=== PATIENT | female | born 1970 | race Caucasian/White ===

== ENCOUNTER 2017-12-08 19:10 | Observation (INO) | payer BC, MEDICAID ==
[~2017-12-08] VITALS: Ht 170.2 cm; Wt 92.5 kg
[~2017-12-08 19:10] MED LIST: AMIT100 PO; ASPI325T PO; ENAL20TA PO; HYDR-2768 PO; METO100 PO
[2017-12-08] MEDS ORDERED: IOHEXOL 350 MG/ML 10 ML VIAL (for RAD DIAG) IVCONTRAST ONE (19:11)
[2017-12-08 19:33] VITALS: BP 162/72; PULSE 72; RESP 17; TEMP 98.3; O2SAT 98
[2017-12-08 21:04] VITALS: BP 209/86; PULSE 77; RESP 20; O2SAT 98
[2017-12-08] MEDS ORDERED: SODIUM CHLORIDE 0.9% FLUSH 10 ML FLUSH IVF PRN (21:15)
[2017-12-08 21:35] VITALS: BP 152/72; PULSE 66; RESP 17; O2SAT 98
[2017-12-08 21:52] LABS: AUTOMATED NEUTROPHIL # 6.1 TH/MM3 (1.8-7.7); BASOPHIL % 0.2 % (0.0-2.0); EOSINOPHIL # 0.3 TH/MM3 (0-0.4); EOSINOPHIL % 2.6 % (0.0-4.0); HEMATOCRIT 37.5 % (35.0-46.0); HEMOGLOBIN 12.4 GM/DL (11.6-15.3); LYMPH % 37.3 % (9.0-44.0); LYMPHOCYTE # 4.1 TH/MM3 (1.0-4.8); MEAN CELL VOLUME 78.2 FL (80.0-100.0); MEAN CORPUSCULAR HEMOGLOBIN 25.8 PG (27.0-34.0); MEAN PLATELET VOLUME 8.2 FL (7.0-11.0); MONO % 4.6 % (0.0-8.0); MONOCYTE # 0.5 TH/MM3 (0-0.9); NEUT % 55.3 % (16.0-70.0); PLATELET COUNT 453 TH/MM3 (150-450); RED CELL DISTRIBUTION WIDTH 18.5 % (11.6-17.2)
[2017-12-08] MEDS: SODIUM CHLOR 0.9% 1000 ML INJ 1,000 ML IV SCH (22:09)
[2017-12-08 22:10] LABS: PROTHROMBIN TIME - PATIENT 9.7 SEC (9.8-11.6)
[2017-12-08 22:23] LABS: BICARBONATE 25.9 MEQ/L (21.0-32.0); BLOOD UREA NITROGEN 8 MG/DL (7-18); CALCIUM 8.7 MG/DL (8.5-10.1); CHLORIDE 106 MEQ/L (98-107); CREATININE 0.61 MG/DL (0.50-1.00); GLOMERULAR FILTRATION RATE 105 ML/MIN (>89); GLUCOSE,RANDOM 91 MG/DL (74-106); SODIUM (NA) 142 MEQ/L (136-145)
[2017-12-08 22:28] LABS: TROPONIN I LESS THAN 0.02 NG/ML (0.02-0.05)
--- NOTE | 2017-12-08 23:05 | RADRPT ---
EXAM DATE/TIME: 12/08/2017 22:44 [facility] COMPARISON: No previous studies available for comparison. INDICATIONS : Headaches with high blood pressure. RADIATION DOSE: 39.43 CTDIvol (mGy) MEDICAL HISTORY : Cerebrovascular disease. Cardiovascular disease Hypertension. SURGICAL HISTORY : None. ENCOUNTER: Initial ACUITY: 1 day PAIN SCALE: 7/10 LOCATION: cranial TECHNIQUE: Multiple contiguous axial images were obtained of the head. Using automated exposure control and adj ustment of the mA and/or kV according to patient size, radiation dose was kept as low as reasonably a chievable to obtain optimal diagnostic quality images. DICOM format image data is available electro nically for review and comparison. FINDINGS: CEREBRUM: The ventricles are normal for age. No evidence of midline shift, mass lesion, hemorrhage or acute in farction. No extra-axial fluid collections are seen. POSTERIOR FOSSA: The cerebellum and brainstem are intact. The 4th ventricle is midline. The cerebellopontine angle i s unremarkable. EXTRACRANIAL: The visualized portion of the orbits is intact. SKULL: The calvaria is intact. No evidence of skull fracture. CONCLUSION: Negative noncontrast head CT Mason Villalpando MD on December 08, 2017 at 23:03 Board Certified Radiologist. This report was verified electronically.
--- NOTE | 2017-12-08 23:18 | RADRPT ---
EXAM DATE/TIME: 12/08/2017 22:44 [facility] COMPARISON: No previous studies available for comparison. INDICATIONS : Headaches with high blood pressure. IV CONTRAST: 80 cc Omnipaque 350 (iohexol) IV ; Cumulative dose for multiple exams. RADIATION DOSE: 28.73 CTDIvol (mGy) ; Combined studies MEDICAL HISTORY : Cerebrovascular disease. Cardiovascular disease Hypertension. SURGICAL HISTORY : None. ENCOUNTER: Initial ACUITY: 1 day PAIN SCALE: 0/10 LOCATION: cranial TECHNIQUE: Volumetric scanning was performed using a multi-row detector CT scanner. The data was post processed with a variety of visualization algorithms including full volume maximum intensity projection, multi -planar sliding thin slab reformation, curved planar reformation, and surface rendering techniques. Using automated exposure control and adjustment of the mA and/or kV according to patient size, radiat ion dose was kept as low as reasonably achievable to obtain optimal diagnostic quality images. DICO M format image data is available electronically for review and comparison. FINDINGS: There is excellent visualization of the major intracranial arteries out to the second-order branch ve ssels. There is no evidence for aneurysm, vessel truncation or stenosis, and no evidence for vascula r malformation. CONCLUSION: Unremarkable exam. Mason Villalpando MD on December 08, 2017 at 23:16 Board Certified Radiologist. This report was verified electronically.
--- NOTE | 2017-12-08 23:32 | RADRPT ---
EXAM DATE/TIME: 12/08/2017 22:44 [facility] COMPARISON: No previous studies available for comparison. INDICATIONS : Headaches with high blood pressure. IV CONTRAST: 80 cc Omnipaque 350 (iohexol) IV ; Cumulative dose for multiple exams. RADIATION DOSE: 28.73 CTDIvol (mGy) ; Combined studies MEDICAL HISTORY : Cerebrovascular disease. Cardiovascular disease Hypertension. SURGICAL HISTORY : None. ENCOUNTER: Initial ACUITY: 1 day PAIN SCALE: 0/10 LOCATION: neck Elevated flow velocities and ICA/CCA ratios have been found to correlate with increased degrees of vessel stenosis, calculated as percentage of diameter relative to a normal segment of distal ICA/CCA. TECHNIQUE: Volumetric scanning was performed using a multirow detector CT scanner. The data was post processed with a variety of visualization algorithms including full-volume maximum intensity projection, multip lanar sliding thin-slab reformation, curved-planar reformation, and surface-rendering techniques. Us ing automated exposure control and adjustment of the mA and/or kV according to patient size, radiatio n dose was kept as low as reasonably achievable to obtain optimal diagnostic quality images. DICOM f ormat image data is available electronically for review and comparison. FINDINGS: AORTIC ARCH: There is a three-vessel origin of the great vessels from the aorta. No evidence of ostial narrowing. RIGHT CAROTID: The common carotid artery is intact. The carotid bulb has a normal configuration without ulceration o r narrowing. Mild noncalcified and calcific plaquing is noted in the internal carotid artery with les s than 40% diameter stenosis. The external carotid artery is intact. LEFT CAROTID: The common carotid artery is intact. The carotid bulb has a normal configuration without ulceration or narrowing. Mild calcific plaquing is noted in the internal carotid artery with less than 40% diame ter stenosis. The external carotid artery is intact. VERTEBRALS: The vertebral arteries have a symmetric diameter. No stenotic lesions are seen. CONCLUSION: Mild calcific plaque in both internal carotid arteries as well as mild noncalcified p laque the right internal carotid artery with less than 40% diameter stenosis. Mason Villalpando MD on December 08, 2017 at 23:27 Board Certified Radiologist. This report was verified electronically.
[2017-12-09] VITALS (12 sets, daily range): BP systolic 133–167; BP diastolic 63–77; PULSE 50–70; RESP 16–18; TEMP 97.8–98.2; O2SAT 96–100
[2017-12-09] MEDS ORDERED: ASPIRIN 325 MG TAB PO ONE (00:30)
[2017-12-09] MEDS ORDERED: POTASSIUM CHLORIDE 20 MEQ CONTROLLED RELEASE TAB PO ONE (00:30)
--- NOTE | 2017-12-09 00:45 | PD ---
HPI Chief Complaint: Hypertension Time Seen by Provider: 21:15 Travel History International Travel<30 days: No Contact w/Intl Traveler<30days: No Traveled to known affect area: No History of Present Illness HPI 47-year-old female presents to the emergency department by private transportation for complaint of new right upper extremity heaviness and stuttering speech that she is noted since approximately 4:30 or 5 PM this evening. Patient states she has history of chronic right upper extremity weakness and mild speech disturbance since CVA in 2011. Patient reports she had a TIA in April 2017. Patient reports that she has had intermittent headache over the past 3-4 days. Patient also relates that the heaviness that she was feeling an onset of symptoms this evening affecting the right upper extremity has diminished somewhat but is still present. Patient is right- handed. Patient has not had any injury. Patient denies any lower extremity numbness tingling or weakness. Patient denies any change in mentation. Patient denies any difficulty swallowing. Patient's had no chest pain or shortness of breath. Patient denies nausea or vomiting. Patient states that she has high blood pressure and feels that her blood pressure is very elevated and causing her symptoms. Patient has had uncontrolled blood pressure in the past. Patient is prescribed enalapril and metoprolol but has not taking her medication as prescribed as she ran out of medication 2 months ago. Patient denies history of diabetes dyslipidemia or atrial fibrillation. Patient does report however she has undergone cardiac ablation for SVT in the past. Patient does admit to tobacco use. Patient does not have a local provider. [facility] Past Medical History Narrative Medical Anxiety depression SVT 2001 with ablation dyslipidemia anxiety hypertension tobaccoism CVA TIA edentulous; family history [place]; nursing notes reviewed Arthritis: No Asthma: No Anxiety: Yes Depression: Yes Heart Rhythm Problems: Yes (PT STATES SHE WAS DX W/SVT'S IN 2001) Cardiovascular Problems: Yes (SVT) High Cholesterol: Yes Chest Pain: No Congestive Heart Failure: No COPD: No Cerebrovascular Accident: Yes Diabetes: No Diminished Hearing: No GERD: No Genitourinary: No Headaches: No Hepatitis: No Hiatal Hernia: No Hypertension: Yes Kidney Stones: No Musculoskeletal: No Neurologic: No Reproductive: No Respiratory: No Immunizations Current: Yes Migraines: No Myocardial Infarction: No Renal Failure: No Seizures: No Sleep Apnea: No Ulcer: No Tetanus Vaccination: < 5 Years Influenza Vaccination: No ?: Not : 4 Para: 3 Miscarriage: 1 : 0 Past Surgical History Abdominal Surgery: No Appendectomy: No Cardiac Surgery: Yes (ABLATION?) Cholecystectomy: No Ear Surgery: Yes Endocrine Surgery: No Eye Surgery: No Genitourinary Surgery: No Gynecologic Surgery: No Oral Surgery: Yes (TEETH REMOVED) Thoracic Surgery: No Tonsillectomy: Yes Family History Family Myocardial Infarction: Yes (FATHER) Social History Alcohol Use: No Tobacco Use: Yes (1/2 PPD) Substance Use: No Allergies-Medications (Allergen,Severity, Reaction): Coded Allergies: No Known Allergies (Verified Adverse Reaction, Unknown, 12/08/17) Reported Meds & Prescriptions Reported Meds & Active Scripts Active No Active Prescriptions or Reported Medications Review of Systems Except as stated in HPI: all other systems reviewed are Neg Physical Exam Narrative GENERAL: Well-developed well-nourished anxious appearing female in no respiratory distress GCS 15 SKIN: Warm and dry. HEAD: Atraumatic. Normocephalic. EYES: Pupils equal and round. No scleral icterus. No injection or drainage. ENT: No nasal bleeding or discharge. Mucous membranes pink and moist. NECK: Trachea midline. No JVD. CARDIOVASCULAR: Regular rate and rhythm. RESPIRATORY: No accessory muscle use. Clear to auscultation. Breath sounds equal bilaterally. GASTROINTESTINAL: Abdomen soft, non-tender, nondistended. Hepatic and splenic margins not palpable. MUSCULOSKELETAL: Extremities without clubbing, cyanosis, or edema. No obvious deformities. NEUROLOGICAL: Awake and alert. No obvious cranial nerve deficits. Motor grossly within normal limits. Five out of 5 muscle strength in the L arms and L leg; 4-5/5 right arm and right lower extremity motor strength. DTRs 2+ and equal without clonus. Sensory exam intact. No pronator drift. Normal speech. PSYCHIATRIC: Appropriate mood and affect; insight and judgment normal. Data Data Last Documented VS Vital Signs Date Time Temp Pulse Resp B/P (MAP) Pulse Ox O2 Delivery O2 Flow Rate FiO2 12/09/17 00:17 18 100 Room Air 12/09/17 00:16 66 12/08/17 19:33 98.3 Orders Orders Electrocardiogram (12/08/17 21:15) Prothrombin Time / Inr (Pt) (12/08/17 21:15) Act Partial Throm Time (Ptt) (12/08/17 21:15) Complete Blood Count With Diff (12/08/17 21:15) Basic Metabolic Panel (Bmp) (12/08/17 21:15) Creatine Kinase (Cpk) (12/08/17 21:15) Troponin I (12/08/17 21:15) Ua Includes Microscopic (12/08/17 21:15) Ct Brain W/O Iv Contrast(Rout) (12/08/17 21:15) Cta Brain W Iv Contrast W 3d (12/08/17 21:15) Cta Neck W Iv Contrast W 3d (12/08/17 21:15) Ecg Monitoring (12/08/17 21:15) Iv Access Insert/Monitor (12/08/17 21:15) Oximetry (12/08/17 21:15) Blood Glucose (12/08/17 21:15) Sodium Chloride 0.9% Flush (Ns Flush) (12/08/17 21:15) Head Of Bed (12/08/17 21:15) Sodium Chlor 0.9% 1000 Ml Inj (Ns 1000 M (12/08/17 21:15) Drug Screen, Random Urine (12/08/17 21:24) Ed Urine Pregnancytest Poc (12/08/17 21:24) Iohexol 350 Inj (Omnipaque 350 Inj) (12/08/17 19:11) Potassium Chloride (Kcl) (12/09/17 00:30) Aspirin (Aspirin) (12/09/17 00:30) Labs Laboratory Tests Test 12/08/17 21:36 12/08/17 22:33 White Blood Count 11.0 TH/MM3 Red Blood Count 4.80 MIL/MM3 Hemoglobin 12.4 GM/DL Hematocrit 37.5 % Mean Corpuscular Volume 78.2 FL Mean Corpuscular Hemoglobin 25.8 PG Mean Corpuscular Hemoglobin Concent 33.0 % Red Cell Distribution Width 18.5 % Platelet Count 453 TH/MM3 Mean Platelet Volume 8.2 FL Neutrophils (%) (Auto) 55.3 % Lymphocytes (%) (Auto) 37.3 % Monocytes (%) (Auto) 4.6 % Eosinophils (%) (Auto) 2.6 % Basophils (%) (Auto) 0.2 % Neutrophils # (Auto) 6.1 TH/MM3 Lymphocytes # (Auto) 4.1 TH/MM3 Monocytes # (Auto) 0.5 TH/MM3 Eosinophils # (Auto) 0.3 TH/MM3 Basophils # (Auto) 0.0 TH/MM3 CBC Comment DIFF FINAL Differential Comment Prothrombin Time 9.7 SEC Prothromb Time International Ratio 1.0 RATIO Activated Partial Thromboplast Time 26.9 SEC Blood Urea Nitrogen 8 MG/DL Creatinine 0.61 MG/DL Random Glucose 91 MG/DL Calcium Level 8.7 MG/DL Sodium Level 142 MEQ/L Potassium Level 3.1 MEQ/L Chloride Level 106 MEQ/L Carbon Dioxide Level 25.9 MEQ/L Anion Gap 10 MEQ/L Estimat Glomerular Filtration Rate 105 ML/MIN Total Creatine Kinase 49 U/L Troponin I LESS THAN 0.02 NG/ML Urine Opiates Screen NEG Urine Barbiturates Screen NEG Urine Amphetamines Screen NEG Urine Benzodiazepines Screen NEG Urine Cocaine Screen NEG Urine Cannabinoids Screen NEG MDM Medical Decision Making Medical Screen Exam Complete: Yes Emergency Medical Condition: Yes Medical Record Reviewed: Yes Interpretation(s) EKG sinus bradycardia rate [address] elevation injury pattern or ectopy noted Last Impressions Neck CTA [id number] Signed Impressions: Service Date/Time: Friday, December 08, 2017 22:44 - CONCLUSION: Mild calcific plaque in both internal carotid arteries as well as mild noncalcified plaque the right internal carotid artery with less than 40%% diameter stenosis. Mason Villalpando MD Head CTA [id number] Signed Impressions: Service Date/Time: Friday, December 08, 2017 22:44 - CONCLUSION: Unremarkable exam. Mason Villalpando MD Head CT [id number] Signed Impressions: Service Date/Time: Friday, December 08, 2017 22:44 - CONCLUSION: Negative noncontrast head CT Mason Villalpando MD CBC & BMP Diagram 12/08/17 21:36 Calcium Level 8.7 Vital Signs Date Time Temp Pulse Resp B/P (MAP) Pulse Ox O2 Delivery O2 Flow Rate FiO2 12/09/17 00:17 18 100 Room Air 12/09/17 00:16 66 18 164/72 (102) 100 Room Air 12/08/17 21:35 66 17 152/72 (98) 98 Room Air 12/08/17 21:04 77 20 209/86 (127) 98 Room Air 12/08/17 19:33 98.3 72 17 162/72 (102 98 Urine drug screen: Negative Troponin I less than 0.02, not elevated Differential Diagnosis Uncontrolled hypertension, hypertensive urgency, CVA, TIA, arrhythmia Narrative Course 47-year-old female with previous CVA with residual speech disturbance and right upper extremity weakness presents with complaint of new right upper extremity heaviness and increased stuttering speech since 4:30-5 PM this evening symptoms slowly improving but identified to have very elevated blood pressure. NIHSS 2. Patient is 4-4-1/2 hours into duration of symptoms that reportedly are slowly improving. Concerned that this may be a TIA or symptoms related to uncontrolled hypertension. Does not meet stroke alert criteria. Call placed to neurology concurs with CT brain noncontrast and CTA of brain [place] as well as CTA of carotids. Recommends as patient is currently on no anticoagulation imaging studies negative for any type of bleed to administer first dose of aspirin 325 mg. Patient will be admitted to medicine service. CT brain noncontrast reveals no acute intracranial process; CTA brain and CTA carotids reveal no acute abnormality. Patient resting supine symptoms have essentially resolved and patient is back to her baseline with mild slurred speech and residual right upper extremity weakness. Patient given first dose of aspirin and noted to have mild hypokalemia 3.1 given oral replacement potassium. Patient be admitted to medicine service with consult to neurology. Patient is agreeable with this plan. Blood pressure is currently 166/70 patient receiving maintenance IV fluids normal saline at 70 cc/h. Physician Communication Physician Communication discussed with Dr Salmon; call placed to [facility] service Diagnosis Primary Impression: TIA (transient ischemic attack) Additional Impressions: Poorly-controlled hypertension Medical non-compliance Admitting Information Admitting Physician Requests: Observation Scripts No Active Prescriptions or Reported Meds Kait Nagy MD December 09, 2017 00:45
[2017-12-09] MEDS ORDERED: SENNOSIDES 8.6 MG TAB PO PRN (01:15)
[2017-12-09] MEDS ORDERED: SODIUM CHLORIDE 0.9% FLUSH 10 ML FLUSH IV FLUSH PRN (01:15)
[2017-12-09] MEDS ORDERED: ACETAMINOPHEN 325 MG TAB PO PRN (01:15)
[2017-12-09] MEDS ORDERED: MAGNESIUM HYDROXIDE SUSP 30 ML CUP PO PRN (01:15)
[2017-12-09] MEDS ORDERED: LACTULOSE SYRUP 20 GM/30 ML CUP PO PRN (01:15)
[2017-12-09] MEDS ORDERED: NALOXONE HCL 0.4 MG/ML AMP IV PUSH PRN (01:15)
[2017-12-09] MEDS ORDERED: BISACODYL 10 MG SUPP RECTAL PRN (01:15)
[2017-12-09] MEDS ORDERED: ONDANSETRON ODT 4 MG TAB PO PRN (01:30)
--- NOTE | 2017-12-09 02:40 | HHI.HP ---
HPI Service [facility] Primary Care Physician No Primary Care Physician Admission Diagnosis TIA; poorly controlled htn Diagnoses: Chief Complaint: Right upper extremity Travel History International Travel<30 Days: No Contact w/Intl Traveler <30 Da: No Traveled to Known Affected Are: No History of Present Illness 47-year-old female with a history of hypertension, hyperlipidemia, CVA, anxiety presents today with complaints of right upper extremity weakness and increased heaviness that began this morning. She states 2 months ago she recently moved to [place] and has been taking her medications except for her hydrochlorothiazide and aspirin, which she has been out. She has not been able to find a PCP for follow-up, but she has been taking her enalapril and metoprolol and atorvastatin as prescribed. She has not been taking her blood pressure at home. She states today after work her mom noted her to have increased slurred speech and insisted that she come to the hospital. She denies any associated chest pain, shortness of breath, fever or chills. Review of Systems Except as stated in HPI: all other systems reviewed are Neg Past Family Social History Past Medical History Hyperlipidemia Hypertension Anxiety TIA 2017 CVA 2012 SVT Past Surgical History Ablation All teeth removed Tonsillectomy Reported Medications Reported Meds & Active Scripts Active No Active Prescriptions or Reported Medications Allergies: Coded Allergies: No Known Allergies (Verified Allergy, Unknown, 12/09/17) Active Ordered Medications Current Medications Medications (Trade) Dose Ordered Sig/Viktor Route Start Time Stop Time Status Last Admin Sodium Chloride 1,000 ml @ 70 mls/hr [id number] IV 12/08/17 21:15 12/08/17 22:09 (NS Flush) 2 ml UNSCH PRN IV FLUSH 12/09/17 01:15 (NS Flush) 2 ml BID IV FLUSH 12/09/17 09:00 (Tylenol) 650 mg Q4H PRN PO 12/09/17 01:15 (Zofran Odt) 4 mg Q6H PRN PO 12/09/17 01:30 (Narcan Inj) 0.4 mg UNSCH PRN IV PUSH 12/09/17 01:15 (Milk Of Magnesia Liq) 30 ml Q12H PRN PO 12/09/17 01:15 (Senokot) 17.2 mg Q12H PRN PO 12/09/17 01:15 (Dulcolax Supp) 10 mg DAILY PRN RECTAL 12/09/17 01:15 (Lactulose Liq) 30 ml DAILY PRN PO 12/09/17 01:15 Family History Dad: CVA Social History Tobacco use: 1 PPD Alcohol use : Denies Physical Exam Vital Signs Vital Signs Date Time Temp Pulse Resp B/P (MAP) Pulse Ox O2 Delivery O2 Flow Rate FiO2 12/09/17 01:55 12/09/17 01:35 63 18 138/63 (88) 100 Room Air 12/09/17 00:17 18 100 Room Air 12/09/17 00:16 66 18 164/72 (102) 100 Room Air 12/08/17 21:35 66 17 152/72 (98) 98 Room Air 12/08/17 21:04 77 20 209/86 (127) 98 Room Air 12/08/17 19:33 98.3 72 17 162/72 (102) 98 Physical Exam GENERAL: This is a well-nourished, well-developed patient, in no apparent distress. SKIN: No rashes, ecchymoses or lesions. Cool and dry. HEAD: Atraumatic. Normocephalic. EYES: Pupils equal round and reactive. CARDIOVASCULAR: Regular rate and rhythm without murmurs, gallops, or rubs. RESPIRATORY: Clear to auscultation. Breath sounds equal bilaterally. No wheezes , rales, or rhonchi. GASTROINTESTINAL: Abdomen soft, non-tender, nondistended. No hepato-splenomegaly , or palpable masses. No guarding. MUSCULOSKELETAL: Extremities without clubbing, cyanosis, or edema. No joint tenderness, effusion, or edema noted. No calf tenderness. NEUROLOGICAL: Awake and alert. 4/5 muscle strength in right upper extremity normal speech. No facial droop, no extremity drift, tongue is midline Laboratory Laboratory Tests Test 12/08/17 21:36 12/08/17 22:33 White Blood Count 11.0 Red Blood Count 4.80 Hemoglobin 12.4 Hematocrit 37.5 Mean Corpuscular Volume 78.2 Mean Corpuscular Hemoglobin 25.8 Mean Corpuscular Hemoglobin Concent 33.0 Red Cell Distribution Width 18.5 Platelet Count 453 Mean Platelet Volume 8.2 Neutrophils (%) (Auto) 55.3 Lymphocytes (%) (Auto) 37.3 Monocytes (%) (Auto) 4.6 Eosinophils (%) (Auto) 2.6 Basophils (%) (Auto) 0.2 Neutrophils # (Auto) 6.1 Lymphocytes # (Auto) 4.1 Monocytes # (Auto) 0.5 Eosinophils # (Auto) 0.3 Basophils # (Auto) 0.0 CBC Comment DIFF FINAL Differential Comment Prothrombin Time 9.7 Prothromb Time International Ratio 1.0 Activated Partial Thromboplast Time 26.9 Blood Urea Nitrogen 8 Creatinine 0.61 Random Glucose 91 Calcium Level 8.7 Sodium Level 142 Potassium Level 3.1 Chloride Level 106 Carbon Dioxide Level 25.9 Anion Gap 10 Estimat Glomerular Filtration Rate 105 Total Creatine Kinase 49 Troponin I LESS THAN 0.02 Urine Opiates Screen NEG Urine Barbiturates Screen NEG Urine Amphetamines Screen NEG Urine Benzodiazepines Screen NEG Urine Cocaine Screen NEG Urine Cannabinoids Screen NEG Result Diagram: 12/08/17213512/08/172135 Imaging Last Impressions Neck CTA 12/08/172114 Signed Impressions: Service Date/Time: Friday, December 08, 2017 22:44 - CONCLUSION: Mild calcific plaque in both internal carotid arteries as well as mild noncalcified plaque the right internal carotid artery with less than 40%% diameter stenosis. Mason Villalpando MD Head CTA 12/08/172114 Signed Impressions: Service Date/Time: Friday, December 08, 2017 22:44 - CONCLUSION: Unremarkable exam. Mason Villalpando MD Head CT 12/08/172114 Signed Impressions: Service Date/Time: Friday, December 08, 2017 22:44 - CONCLUSION: Negative noncontrast head CT Mason Villalpando MD Caprini VTE Risk Assessment Caprini VTE Risk Assessment: Mod/High Risk (score >= 2) Caprini Risk Assessment Model Point Value = 1 Point Value = 2 Point Value = 3 Point Value = 5 Age 41-60 Minor surgery BMI > 25 kg/m2 Swollen legs Varicose veins or History of unexplained or recurrent spontaneous Oral contraceptives or hormone replacement Sepsis (< 1 month) Serious lung disease, including pneumonia (< 1 month) Abnormal pulmonary function Acute myocardial infarction Congestive heart failure (< 1 month) History of inflammatory bowel disease Medical patient at bed rest Age 61-74 Arthroscopic surgery Major open surgery (> 45 min) Laparoscopic surgery (> 45 min) Malignancy Confined to bed (> 72 hours) Immobilizing plaster cast Central venous access Age >= 75 History of VTE Family history of VTE Factor V Leiden Prothrombin [id number] Lupus anticoagulant Anticardiolipin antibodies Elevated serum homocysteine Heparin-induced thrombocytopenia Other congenital or acquired thrombophilia Stroke (< 1 month) Elective arthroplasty Hip, pelvis, or leg fracture Acute spinal cord injury (< 1 month) Prophylaxis Regimen Total Risk Factor Score Risk Level Prophylaxis Regimen 0-1 Low Early ambulation 2 Moderate Order ONE of the following: *Sequential Compression Device (SCD) *Heparin 5000 units SQ BID 3-4 Higher Order ONE of the following medications: *Heparin 5000 units SQ TID *Enoxaparin/Lovenox 40 mg SQ daily (WT < 150 kg, CrCl > 30 mL/min) *Enoxaparin/Lovenox 30 mg SQ daily (WT < 150 kg, CrCl > 10-29 mL/min) *Enoxaparin/Lovenox 30 mg SQ BID (WT < 150 kg, CrCl > 30 mL/min) AND/OR *Sequential Compression Device (SCD) 5 or more Highest Order ONE of the following medications: *Heparin 5000 units SQ TID (Preferred with Epidurals) *Enoxaparin/Lovenox 40 mg SQ daily (WT < 150 kg, CrCl > 30 mL/min) *Enoxaparin/Lovenox 30 mg SQ daily (WT < 150 kg, CrCl > 10-29 mL/min) *Enoxaparin/Lovenox 30 mg SQ BID (WT < 150 kg, CrCl > 30 mL/min) AND *Sequential Compression Device (SCD) Assessment and Plan Problem List: (1) HLD (hyperlipidemia) ICD Code: E78.5 - Hyperlipidemia, unspecified Status: Chronic (2) TIA (transient ischemic attack) ICD Code: G45.9 - Transient cerebral ischemic attack, unspecified Status: Acute (3) Poorly-controlled hypertension ICD Code: I10 - Essential (primary) hypertension Status: Chronic Assessment and Plan 47-year-old female with a history of hypertension, hyperlipidemia, CVA, anxiety presents today with complaints of right upper extremity weakness and increased heaviness that began this morning. TIA, acute, patient with right upper extremity weakness Head CT reviewed was unremarkable, head CT reviewed and was unremarkable, neck CTA reviewed and shows mild calcific plaque in both internal carotid arteries as well as mild noncalcified plaque in the right internal carotid artery with less than 40% diameter stenosis -MRI brain ordered -Consult neurology recommendations -Continue atorvastatin HS -Neurochecks, head of bed -Heart healthy diet -Lipid profile, A1c -PT/OT/ST -2D echo ordered Hypokalemia, potassium 3.1 -Supplementation given in the ED, trend potassium and replace as needed Hypertension, chronic, uncontrolled -Resume home medications enalapril, HCTZ and metoprolol Anxiety, chronic -Resume amitriptyline DVT prophylaxis: SCDs Discussed Condition With Patient and RN Problem Qualifiers (1) HLD (hyperlipidemia): Qualified Codes: E78.2 - Mixed hyperlipidemia (2) TIA (transient ischemic attack): Qualified Codes: G45.8 - Other transient cerebral ischemic attacks and related syndromes Raysa Purcell December 09, 2017 02:40
[2017-12-09 05:02] LABS: CHOLESTEROL 163 MG/DL (120-200); TRIGLYCERIDES 144 MG/DL (42-150)
[2017-12-09 05:04] LABS: CHOLESTEROL/ HDL RATIO 5.32 RATIO; HDL CHOLESTEROL 30.6 MG/DL (40.0-60.0); LDL CHOLESTEROL 104 MG/DL (0-99)
[2017-12-09] MEDS ORDERED: ENAL20TA PO (05:55)
[2017-12-09] MEDS ORDERED: METO100T PO (05:55)
--- NOTE | 2017-12-09 08:45 | HHI.PR ---
Subjective Remarks Follow up on patient with RUE weakness. Patient seen and examined. Patient continues to complain of weakness in the right upper extremity but states that it is improved since her admission. She denies any lower extremity weakness. She denies any complaints of dizziness or lightheadedness. She complains of a mild headache today. She denies any nausea or vomiting. She is asking when breakfast is going to be served. She denies any fever or chills. Denies any chest pain or shortness of breath. Objective Vitals Vital Signs Date Time Temp Pulse Resp B/P (MAP) Pulse Ox O2 Delivery O2 Flow Rate FiO2 12/09/17 07:47 98.1 56 16 164/77 (106) 97 12/09/17 04:19 54 12/09/17 04:10 97.9 56 16 133/65 (87) 97 12/09/17 01:55 12/09/17 01:35 63 18 138/63 (88) 100 Room Air 12/09/17 00:17 18 100 Room Air 12/09/17 00:16 66 18 164/72 (102) 100 Room Air 12/08/17 21:35 66 17 152/72 (98) 98 Room Air 12/08/17 21:04 77 20 209/86 (127) 98 Room Air 12/08/17 19:33 98.3 72 17 162/72 (102) 98 Result Diagram: 12/08/17213512/08/172135 Imaging Last Impressions Neck CTA 12/08/172114 Signed Impressions: Service Date/Time: Friday, December 08, 2017 22:44 - CONCLUSION: Mild calcific plaque in both internal carotid arteries as well as mild noncalcified plaque the right internal carotid artery with less than 40%% diameter stenosis. Mason Villalpando MD Head CTA 12/08/172114 Signed Impressions: Service Date/Time: Friday, December 08, 2017 22:44 - CONCLUSION: Unremarkable exam. Mason Villalpando MD Head CT 12/08/172114 Signed Impressions: Service Date/Time: Friday, December 08, 2017 22:44 - CONCLUSION: Negative noncontrast head CT Mason Villalpando MD Objective Remarks GENERAL: This is a well-nourished, well-developed patient, in no apparent distress. Sleeping soundly but easily awakens to voice prompt. SKIN: No rashes, ecchymoses or lesions. Warm and dry. HEENT: Atraumatic. Normocephalic. Pupils equal round and reactive. EOMI. No nasal drainage or discharge. Airway patent. MMM. CARDIOVASCULAR: Regular rate and rhythm without murmurs, gallops, or rubs. RESPIRATORY: Nonlabored. Clear to auscultation. Breath sounds equal bilaterally. No wheezes, rales, or rhonchi. GASTROINTESTINAL: Abdomen soft, non-tender, nondistended. No hepato-splenomegaly , or palpable masses. No guarding. MUSCULOSKELETAL: Extremities without clubbing, cyanosis, or edema. No joint tenderness, effusion, or edema noted. No calf tenderness. NEUROLOGICAL: Awake and alert. Able to move all extremities spontaneously. Motor function grossly intact in bilateral upper and lower extremities. Normal speech. No facial droop, no extremity drift, tongue is midline PSYCHIATRIC: Appropriate mood and affect. Normal judgment and insight. Calm and cooperative with exam. A/P Problem List: (1) HLD (hyperlipidemia) ICD Code: E78.5 - Hyperlipidemia, unspecified Status: Chronic (2) TIA (transient ischemic attack) ICD Code: G45.9 - Transient cerebral ischemic attack, unspecified Status: Acute (3) Poorly-controlled hypertension ICD Code: I10 - Essential (primary) hypertension Status: Chronic Assessment and Plan 47-year-old female with a history of hypertension, hyperlipidemia, CVA, anxiety presents today with complaints of right upper extremity weakness and increased heaviness that began this morning. TIA, acute, patient with right upper extremity weakness Head CT reviewed was unremarkable, neck CTA reviewed and shows mild calcific plaque in both internal carotid arteries as well as mild noncalcified plaque in the right internal carotid artery with less than 40% diameter stenosis -MRI brain pending -Awaiting neurology recommendations -start atorvastatin HS. obtain lipid panel -Neurochecks -Heart healthy diet -A1c pending -PT/OT/ST eval/tx -2D echo ordered/pending Hypokalemia, potassium 3.4 -po repletion ordered -repeat BMP in am Hypertension, chronic, uncontrolled -continue home medications enalapril, HCTZ and metoprolol Anxiety, chronic -continue amitriptyline DVT prophylaxis: SCDs Discharge Planning Workup in progress, not ready for discharge Problem Qualifiers (1) HLD (hyperlipidemia): Qualified Codes: E78.2 - Mixed hyperlipidemia (2) TIA (transient ischemic attack): Qualified Codes: G45.8 - Other transient cerebral ischemic attacks and related syndromes Sumi Enrique December 09, 2017 08:45
[2017-12-09] MEDS ORDERED: ASPIRIN EC 81 MG TABEC PO SCH (09:00)
[2017-12-09 09:20] LABS: BICARBONATE 22.9 MEQ/L (21.0-32.0); CALCIUM 8.5 MG/DL (8.5-10.1); CREATININE 0.63 MG/DL (0.50-1.00)
--- NOTE | 2017-12-09 10:09 | PD.CONS ---
History of Present Illness Service Neurology Consult Requested By Medical Team Reason for Consult CVA Primary Care Physician No Primary Care Physician History of Present Illness 47 y/o female with hx of HTN, Hyperlipidemia, TIA (apr 2017) and CVA (2011), began noting flushing of her face after work last night. Her mother noted she did not look well and checked her BP. BP at home was 163/65. She had run out of her ASA 81mg daily and HCTZ about 2 months ago. She had been taking metoprolol and enalapril. It should also be noted that she stopped her medication for hyperlipidemia as well. No side effects on it but did not feel like taking it. She noted heaviness and weakness of the right arm. No sensory changes, no change in vision, no change in gait. She did note some word finding difficulities. Her mother called EMS and BP was still elevated and she was brought to the ER. She reports that she was unable to move the right arm last night when she arrived at the ER and needed assistance dressing as the arm felt heavy and she could not move it. She reports that as of 1115pm last night that she had improvement in the mobility of her arm and improvement in speech. She feels she is about 70% better. She has cut down from 2ppd of cigarettes to 1ppd for the last 8 months. No hx of a-fib. Previous TIA she reports as vertigo symptoms and syncope, was evaluated in [place]. CVA had right facial droop, bilateral loss of vision, unsteady gait. She does feel she no longer had residual symptoms of these previous events. (Yris Samaniego) Review of Systems Constitutional: Negative except HPI Eye: Negative Except HPI ENMT: Negative except HPI Respiratory: Negative except HPI Cardiovascular: Negative except HPI Gastrointestinal: Negative except HPI Blake/Lymph: Negative except HPI Musculoskeletal: Negative except HPI Neurologic: Negative except HPI Psychiatric: Negative except HPI All other ROS: ROS reviewed as documented in chart (Yris Samaniego) Past Family Social History Allergies: Coded Allergies: No Known Allergies (Verified Allergy, Unknown, 12/09/17) Past Medical History HTN, hyperlipidemia, stroke, TIA Past Surgical History ear surgery, oral surgery, tonsillectomy Active Ordered Medications Current Medications Medications (Trade) Dose Ordered Sig/Viktor Route Start Time Stop Time Status Last Admin Sodium Chloride 1,000 ml @ 70 mls/hr [id number] IV 12/08/17 21:15 12/08/17 22:09 (NS Flush) 2 ml UNSCH PRN IV FLUSH 12/09/17 01:15 (NS Flush) 2 ml BID IV FLUSH 12/09/17 09:00 (Tylenol) 650 mg Q4H PRN PO 12/09/17 01:15 (Zofran Odt) 4 mg Q6H PRN PO 12/09/17 01:30 (Narcan Inj) 0.4 mg UNSCH PRN IV PUSH 12/09/17 01:15 (Milk Of Magnesia Liq) 30 ml Q12H PRN PO 12/09/17 01:15 (Senokot) 17.2 mg Q12H PRN PO 12/09/17 01:15 (Dulcolax Supp) 10 mg DAILY PRN RECTAL 12/09/17 01:15 (Lactulose Liq) 30 ml DAILY PRN PO 12/09/17 01:15 (Lipitor) 40 mg DAILY PO 12/09/17 09:00 (Ecotrin Ec) 81 mg DAILY PO 12/09/17 09:00 Family History father stroke and MS, brother with seizures Social History smoked 2ppd x 25 yrs, decreased to 1 ppd 8 months ago, no alcohol, 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, cleans condos (Yris Samaniego) Exam I&O / VS Vital Signs Date Time Temp Pulse Resp B/P (MAP) Pulse Ox O2 Delivery O2 Flow Rate FiO2 12/09/17 07:47 98.1 56 16 164/77 (106) 97 12/09/17 04:19 54 12/09/17 04:10 97.9 56 16 133/65 (87) 97 12/09/17 01:55 12/09/17 01:35 63 18 138/63 (88) 100 Room Air 12/09/17 00:17 18 100 Room Air 12/09/17 00:16 66 18 164/72 (102) 100 Room Air 12/08/17 21:35 66 17 152/72 (98) 98 Room Air 12/08/17 21:04 77 20 209/86 (127) 98 Room Air 12/08/17 19:33 98.3 72 17 162/72 (102) 98 General: Alert and Oriented, No acute distress Eye: PERRL, EOMI Respiratory: Non-labored respirations Cardiology: No murmur Neurologic: Alert, Oriented, Normal motor, No focal defects, CN II-XII intact, Normal DTR's Psychiatric: Cooperative, Appropriate mood & affect Exam Comments no drift or leg lag, no facial asymmetry, 5/5 upper and lower, f-n-f intact, no tremor, gait withheld, mild expressive aphasia (Yris Samaniego) Review/Management Diagnosis/Plan: (1) Essential hypertension Status: Chronic Plan: BP control (2) TIA (transient ischemic attack) ICD Codes: G45.9 - Transient cerebral ischemic attack, unspecified Status: Acute Plan: MRI pending would restart ASA 81mg as pt had been off for the last 2 months blood pressure control check lipid profile, restart Statin, goal LDL <70 continue telemetry, may need LOOP with hx of recurrent stroke though she has risk factors for stroke including HTN, Hyperlipidemia, Tobacco use and medication noncompliance, due to young age may also benefit from hypercoag work up as first stroke was in 2011 ECHO ordered discussed smoking cessation, she is working toward this CT no acute abnormality CTA head neg CTA neck - <40% stenosis consider eval for [place] outpatient (3) HLD (hyperlipidemia) ICD Codes: E78.5 - Hyperlipidemia, unspecified Status: Chronic Plan: Lipid panel pending restart Statin (4) Aphasia due to acute cerebrovascular accident (CVA) ICD Codes: I63.9 - Cerebral infarction, unspecified; R47.01 - Aphasia Status: Acute Plan: improving, will continue to monitor work with speech therapy (5) Medical non-compliance ICD Codes: Z91.19 - Patient's noncompliance with other medical treatment and regimen Status: Acute (Yris Samaniego) Diagnosis/Plan: (1) TIA (transient ischemic attack) ICD Codes: G45.9 - Transient cerebral ischemic attack, unspecified Status: Acute Plan: MRI pending would restart ASA 325mg as pt had been off for the last 2 months blood pressure control check lipid profile, restart Statin, goal LDL <70 continue telemetry, cardio eval/possible matt with hx of recurrent stroke though she has risk factors for stroke including HTN, Hyperlipidemia, Tobacco use and medication noncompliance, due to young age may also benefit from hypercoag work up as first stroke was in 2011 ECHO ordered discussed smoking cessation, she is working toward this CT no acute abnormality CTA head neg CTA neck - <40% stenosis discussed with PA. Agree with above (Chavo Chen MD) Problem Qualifiers (1) TIA (transient ischemic attack): Qualified Codes: G45.8 - Other transient cerebral ischemic attacks and related syndromes (2) HLD (hyperlipidemia): Qualified Codes: E78.2 - Mixed hyperlipidemia Yris Samaniego December 09, 2017 10:09 Chavo Chen MD December 09, 2017 15:43
[2017-12-09] MEDS: SODIUM CHLORIDE 0.9% FLUSH 10 ML FLUSH IV FLUSH SCH ×2 (10:25→21:00)
[2017-12-09] MEDS: ATORVASTATIN 40 MG TAB PO SCH (10:25)
[2017-12-09] MEDS: SODIUM CHLOR 0.9% 1000 ML INJ 1,000 ML IV SCH ×2 (10:26→21:48)
[2017-12-09 12:22] LABS: BILIRUBIN, URINE NEG (NEG); BLOOD, URINE NEG (NEG); GLUCOSE,URINE NEG (NEG); KETONE, URINE NEG (NEG); NITRITE,URINE NEG (NEG); URINE COLOR YELLOW (YELLW/STRAW); URINE LEUKOCYTE ESTERASE NEG (NEG)
[2017-12-09 12:28] LABS: SQUAMOUS EPITHELIAL CELL URINE <1 /hpf (0-5)
--- NOTE | 2017-12-09 15:01 | RADRPT ---
EXAM DATE: 12/09/2017 2:44 PM EDT AGE/SEX: 47 years / Female INDICATIONS: CVA. poorly controlled HTN. CLINICAL DATA: This is the patient's initial encounter. Patient reports that signs and symptoms have been present for 3 days and indicates a pain score of 0/10. MEDICAL/SURGICAL HISTORY: Hypertension. Diabetes mellitus type II. Tonsillectomy. COMPARISON: No prior [facility] exams available for comparison. TECHNIQUE: Multiplanar, multisequence examination of the brain was performed without contrast. FINDINGS: Cerebrum: The ventricles are normal for age. No evidence of midline shift, mass lesion, hemorrhage or acute infarction. No extraaxial fluid collections are seen. The pituitary gland and suprasellar cistern are normal in configuration. White Matter: No significant signal abnormalities are seen in the white matter. Posterior Fossa: The cerebellum and brainstem are intact. The 4th ventricle is midline. The cerebel lopontine angle is unremarkable. The cerebellar tonsils are normal in position. Diffusion Imaging: No focal areas of restricted diffusion are seen. No evidence of acute infarction . Extracranial: The visualized portions of the orbits and paranasal sinuses are unremarkable. CONCLUSION: 1. Unremarkable MRI of the brain. Electronically signed by: Bryn Lao MD 12/09/2017 3:00 PM EDT
[2017-12-09] MEDS ORDERED: POTASSIUM CHLORIDE 10 MEQ CONTROLLED RELEASE TAB PO ONE (15:15)
[2017-12-09 16:09] LABS: HEMOGLOBIN A1C 5.4 % (4.3-6.0)
[2017-12-09] MEDS: CLOPIDOGREL 75 MG TAB PO SCH (17:01)
--- NOTE | 2017-12-09 17:03 | EKG ---
Date Performed: 12/08/2017 Time Performed: 22:22:34 PTAGE: 47 years EKG: SINUS BRADYCARDIA BORDERLINE ECG PREVIOUS TRACING : 10/08/2013 13.51 Since the previous tracing, no significant change noted DOCTOR: Chen Puckett Interpretating Date/Time 12/09/2017 17:03:06
--- NOTE | 2017-12-09 19:28 | MB ---
cc: Severiano Melendez MD DATE: 12/09/2017 HISTORY OF PRESENT ILLNESS: This is a very pleasant 47-year-old lady with history of CVA and TIA, presents with her typical TIA symptoms, complains of new right upper extremity heaviness, stuttering speech beginning at 4:30 this morning, which has completely resolved. She had a CVA in 2011. She otherwise denies any chest pain, dyspnea, fever, chills, cough, GI of bleeding, PND, orthopnea, syncope, dizziness or dysphagia. PAST MEDICAL HISTORY: Includes SVT, status post ablation, dyslipidemia, hypertension, tobacco abuse, edentulous, anxiety and depression. SOCIAL HISTORY: She smokes 1/2 pack of cigarettes a day. Denies alcohol use. MEDICATIONS: In the hospital: 1. Aspirin 325 daily. 2. Clopidogrel 75 mg daily. 3. Atorvastatin 40 mg daily. PHYSICAL EXAMINATION: VITAL SIGNS: Blood pressure 138/74, pulse 69, respiratory rate 16, temperature 98.2. GENERAL: She is alert and oriented x 3, in no acute distress. NECK: Supple. No JVD. No bruit. CARDIOVASCULAR: S1, S2. No murmurs, rubs, gallops. LUNGS: Clear to auscultation bilaterally . ABDOMEN: Soft, nontender, nondistended, with positive bowel sounds. EXTREMITIES: No lower extremity edema. NEUROLOGIC: She appears nonfocal. LABORATORY DATA: White count is 11.0, hemoglobin 12.4, hematocrit 37.5, MCV 78.2, platelet count 453. Sodium 142, potassium 3.1, chloride 106, bicarbonate 25.9, BUN 8, creatinine 0.61. Troponin less than 0.02. LDL is 104. TSH 2.150. INR 1.0. Toxicology is negative. IMAGING: Neck CTA, mild calcific plaque in both internal carotid arteries, as well as mild noncalcified plaque in the right internal carotid artery with less than 40% diameter stenosis. Head CTA unremarkable exam. Head CT, negative noncontrast head CT. Brain MRI today, unremarkable MRI of the brain. ECHOCARDIOGRAM ON ADMISSION: Sinus bradycardia at 57 beats per minute, otherwise normal. Corrected QT interval of 425 milliseconds. SHE HAS THE FOLLOWING DIAGNOSES: 1. Transient ischemic attack. 2. Tobacco abuse. 3. History of supraventricular tachycardia. 4. Carotid stenosis. DISCUSSION: She has been evaluated by Neurology, who have ____ her as having a TIA. Will discuss with neurology risks and benefits of MICHAEL. Strongly recommend tobacco cessation. She has been placed on aspirin and Plavix. She is on Lipitor appropriately for the carotid stenosis. Further recommendations based on the risks and benefits, as discussed with neurology for MICHAEL. MD CHINO Sanders/CORINA/tamiko , 05:36 PM , 06:47 PM
--- NOTE | 2017-12-09 20:59 | MB ---
cc: Jamilah Schneider MD DATE: 12/09/2017 CHIEF COMPLAINT: 1. Transient ischemic attack. 2. History of past stroke. 3. Hypercoagulable workup. HISTORY OF PRESENT ILLNESS: The patient is a 47-year-old lady with a history of hypertension, hyperlipidemia, stroke and anxiety, who is admitted to [facility] on 12/09/2017 with new onset right upper extremity weakness and heaviness as well as slurred speech that began the morning of presentation. She has recently moved to [place] within the past 2 months and has been compliant with her blood pressure medicines. IMAGING STUDIES: Include a CT of the neck, which showed mild calcific plaque in both internal carotid arteries, as well as mild noncalcified plaque in the right internal carotid artery with less than 40% diameter stenosis. Head CTA was an unremarkable exam. Head CT was negative noncontrast head CT. Brain MRI showed unremarkable MRI of the brain. Neurology team was consulted. From their note, the patient has a history of a TIA in April 2017 and a CVA in 2011. Also ordered, but not yet done is echocardiogram. LABORATORY STUDIES: With white blood cell count 11, hemoglobin 12.4, platelet count is 453,000 with a normal differential. ESR is elevated at 25. Chemistry studies with a creatinine of 0.63. Liver function test not performed. Urine drug screen is negative. Coags are within normal limits. PAST MEDICAL HISTORY: 1. Hyperlipidemia. 2. Hypertension. 3. Anxiety. 4. TIA. 5. CVA. 6. SVT. PAST SURGICAL HISTORY: 1. Ablation. 2. All teeth removed. 3. Tonsillectomy. FAMILY HISTORY: The patient denies any family members with history of blood clot or miscarriages. Father with a history of stroke. SOCIAL HISTORY: She is an active tobacco abuser. She smokes 1 pack a day. She reports in the past that she had previously smoked 2 packs a day. She reports that she is interested in quitting, but uncertain if she will be able to do so. Denies alcohol and illegal drug use. She works as a cleaning lady. She has a good support system with her mother. ROS as above in HPI all other negative. PHYSICAL EXAMINATION: VITAL SIGNS: Temperature 98.2, pulse 69, blood pressure 138/74, pulse oximetry is 96% on room air. GENERAL: Well-developed, overweight lady in no distress, sitting up in bed. HEAD: Normocephalic, atraumatic. EYES: PERRLA, EOMI. No scleral icterus. NECK: Supple, with no palpable lymphadenopathy. RESPIRATORY: Clear to auscultation bilaterally. CARDIOVASCULAR: Regular rate and rhythm. No murmurs. ABDOMEN: Protuberant abdomen but soft, nontender, nondistended. EXTREMITIES: With no edema. NEUROLOGIC: Grossly nonfocal. Alert and oriented x 3. PSYCHIATRIC: Poor long-term memory. ASSESSMENT AND PLAN: 1. Hypercoagulable workup in a young patient with a past stroke as well as transient ischemic attacks. Patient with no personal history of blood clots and no family history of blood clot. No family or personal history of miscarriage. Given young age, as well as significant vascular disease, history, will perform hypercoagulable workup to include factor V Leiden, prothrombin gene mutation testing, antiphospholipid antibody testing with lupus anticoagulant, antithrombin III activity, protein S activity and protein C activity. Discussed above testing with the patient, who is in agreement. 2. Tobacco abuse, counseled on tobacco cessation. The patient expressed understanding and she reported that she is working on cessation, but is uncertain if she will be able to successfully quit. MD MARLEN Jarrett/CORINA , 07:22 PM , 08:58 PM REJI
[2017-12-09] MEDS ORDERED: METOPROLOL TARTRATE 100 MG TAB PO SCH (21:00)
[2017-12-09] MEDS ORDERED: AMIT100T2 PO (21:47)
[2017-12-09] MEDS ORDERED: ATOR40TA16 PO (21:47)
[2017-12-09] MEDS ORDERED: HYDR25TA5 PO (21:47)
[2017-12-09] MEDS ORDERED: ASPI-183 PO (21:47)
[2017-12-10] VITALS (8 sets, daily range): BP systolic 112–160; BP diastolic 53–82; PULSE 51–68; RESP 18; TEMP 97.7–98.4; O2SAT 95–98
--- NOTE | 2017-12-10 08:15 | HHI.PR ---
Subjective Remarks Follow up on patient with RUE weakness. Patient seen and examined. Patient denies any complaints this morning. She is refusing the MICHAEL. She has also refused am blood work secondary to be yelled at by lab coordinator. Lengthy discussion at the bedside regarding reasoning for extensive workup given her young age, multiple ischemic events and concern for hypercoagulability. Patient states understanding but is still insistent on refusing any additional workup at this time except for 2D echocardiogram which she is agreeable to completing. She understands she continues to be at risk for another ischemic event especially in light of incomplete workup and her continued tobacco use. She denies any dizziness, lightheadedness, headache, vision changes or slurred speech. She denies any chest pain or dyspnea. She denies any N/V or abdominal pain. She denies any weakness or numbness/tingling. She denies any urinary difficulties, diarrhea or constipation. Objective Vitals Vital Signs Date Time Temp Pulse Resp B/P (MAP) Pulse Ox O2 Delivery O2 Flow Rate FiO2 12/10/17 07:05 98.4 63 18 144/78 (100) 95 12/10/17 04:48 97.7 54 18 160/80 (106) 96 12/10/17 04:35 56 12/10/17 00:53 98.0 62 18 132/61 (84) 98 12/10/17 00:10 51 12/09/17 20:10 70 12/09/17 19:22 97.8 67 18 167/75 (105) 97 12/09/17 16:51 67 12/09/17 15:02 98.2 69 16 138/74 (95) 96 12/09/17 11:05 98.0 58 16 139/68 (91) 97 12/09/17 08:30 50 I/O 12/09/17 12/09/17 12/09/17 12/10/17 12/10/17 12/10/17 07:00 15:00 23:00 07:00 15:00 23:00 Intake Total 1000 ml Balance 1000 ml Intake IV Total 1000 ml # Bowel Movements 1 Result Diagram: 12/08/17213512/09/17 0327 Imaging Last Impressions Brain MRI 12/09/17 0000 Signed Impressions: CONCLUSION: Neck CTA 12/08/172114 Signed Impressions: Service Date/Time: Friday, December 08, 2017 22:44 - CONCLUSION: Mild calcific plaque in both internal carotid arteries as well as mild noncalcified plaque the right internal carotid artery with less than 40%% diameter stenosis. Mason Villalpando MD Head CTA 12/08/172114 Signed Impressions: Service Date/Time: Friday, December 08, 2017 22:44 - CONCLUSION: Unremarkable exam. Mason Villalpando MD Head CT 12/08/172114 Signed Impressions: Service Date/Time: Friday, December 08, 2017 22:44 - CONCLUSION: Negative noncontrast head CT Mason Villalpando MD Objective Remarks GENERAL: This is a well-nourished, well-developed patient, in no apparent distress. Awake and alert. Sitting up in bed. SKIN: No rashes, ecchymoses or lesions. Warm and dry. HEENT: Atraumatic. Normocephalic. Pupils equal round and reactive. EOMI. No nasal drainage or discharge. Airway patent. MMM. CARDIOVASCULAR: Regular rate and rhythm without murmurs, gallops, or rubs. RESPIRATORY: Nonlabored. Clear to auscultation. Breath sounds equal bilaterally. No wheezes, rales, or rhonchi. GASTROINTESTINAL: Abdomen soft, non-tender, nondistended. No hepato-splenomegaly , or palpable masses. No guarding. MUSCULOSKELETAL: Extremities without clubbing, cyanosis, or edema. No joint tenderness, effusion, or edema noted. No calf tenderness. NEUROLOGICAL: Awake and alert. Able to move all extremities spontaneously. Motor function grossly intact in bilateral upper and lower extremities. No focal neurologic findings appreciated. Normal speech. No facial droop, no extremity drift, tongue is midline PSYCHIATRIC: Appropriate mood and affect. Normal judgment and insight. Calm and cooperative with exam. A/P Problem List: (1) HLD (hyperlipidemia) ICD Code: E78.5 - Hyperlipidemia, unspecified Status: Chronic (2) TIA (transient ischemic attack) ICD Code: G45.9 - Transient cerebral ischemic attack, unspecified Status: Acute (3) Poorly-controlled hypertension ICD Code: I10 - Essential (primary) hypertension Status: Chronic Assessment and Plan 47-year-old female with a history of hypertension, hyperlipidemia, CVA, anxiety presents today with complaints of right upper extremity weakness and increased heaviness that began this morning. TIA, acute, patient with right upper extremity weakness Head CT reviewed was unremarkable, neck CTA reviewed and shows mild calcific plaque in both internal carotid arteries as well as mild noncalcified plaque in the right internal carotid artery with less than 40% diameter stenosis MRI brain unremarkable -Neurology following -continue on Lipitor 40mg daily with LDL goal <70 (LDL 104), ASA 325mg daily and Plavix 75mg daily -will need to clarify with neurology at time of discharge plan for anticoagulation at home -discussed smoking cessation -2D echo ordered/pending -consider [place] eval as outpatient -Cleared from treatment from PT/OT/ST -Hematology following for hypercoagulable workup - patient refusing labs this am -Cardiology consulted for MICHAEL, patient refusing study at this time -Discontinue IV fluids Hypokalemia, potassium 3.4 -po repletion ordered yesterday -repeat BMP in am ordered but patient refusing labs Hypertension, chronic, uncontrolled -continue home medications enalapril, HCTZ and metoprolol DVT prophylaxis: SCDs Discharge Planning Plan for discharge later today pending results of echocardiogram and Neurology clearance Problem Qualifiers (1) HLD (hyperlipidemia): Qualified Codes: E78.2 - Mixed hyperlipidemia (2) TIA (transient ischemic attack): Qualified Codes: G45.8 - Other transient cerebral ischemic attacks and related syndromes Sumi Enrique December 10, 2017 08:15
[2017-12-10] MEDS ORDERED: HYDR25TA5 PO (08:19)
[2017-12-10] MEDS ORDERED: METO100T PO (08:19)
[2017-12-10] MEDS ORDERED: ATOR40TA16 PO (08:19)
[2017-12-10] MEDS ORDERED: PLAV75TA29 PO (08:19)
[2017-12-10] MEDS ORDERED: ENAL20TA PO (08:19)
[2017-12-10] MEDS ORDERED: HYDROCHLOROTHIAZIDE 12.5 MG CAP PO SCH (09:00)
[2017-12-10] MEDS ORDERED: ASPIRIN EC 325 MG TABEC PO SCH (09:00)
[2017-12-10] MEDS ORDERED: ENALAPRIL MALEATE 10 MG TAB PO SCH (09:00)
[2017-12-10] MEDS ORDERED: METOPROLOL TARTRATE 25 MG TAB PO SCH (09:00)
[2017-12-10] MEDS: CLOPIDOGREL 75 MG TAB PO SCH (09:15)
[2017-12-10] MEDS: ATORVASTATIN 40 MG TAB PO SCH (09:15)
[2017-12-10] MEDS: SODIUM CHLORIDE 0.9% FLUSH 10 ML FLUSH IV FLUSH SCH (09:16)
--- NOTE | 2017-12-10 09:25 | HHI.PR ---
Review/Management Diagnosis/Plan: (1) TIA (transient ischemic attack) ICD Codes: G45.9 - Transient cerebral ischemic attack, unspecified Status: Acute Plan: restart ASA 325mg as pt had been off for the last 2 months blood pressure control check lipid profile, restart Statin, goal LDL <70 MRI brain normal. No evidence of any previous stroke. ECHO ordered discussed smoking cessation, she is working toward this CT no acute abnormality CTA head neg CTA neck - <40% stenosis Recommendations Neuro stable can be discharged from our standpoint Rest as above Tobacco cessation and aspirin daily lipid control weight loss exercise Follow-up with primary care physician Subjective Subjective Comments No acute events reported No headache No chest pain No dyspnea Active Medications Current Medications Medications (Trade) Dose Ordered Sig/Viktor Route Start Time Stop Time Status Last Admin (NS Flush) 2 ml UNSCH PRN IV FLUSH 12/09/17 01:15 (NS Flush) 2 ml BID IV FLUSH 12/09/17 09:00 12/10/17 09:16 (Tylenol) 650 mg Q4H PRN PO 12/09/17 01:15 (Zofran Odt) 4 mg Q6H PRN PO 12/09/17 01:30 (Narcan Inj) 0.4 mg UNSCH PRN IV PUSH 12/09/17 01:15 (Milk Of Magnesia Liq) 30 ml Q12H PRN PO 12/09/17 01:15 (Senokot) 17.2 mg Q12H PRN PO 12/09/17 01:15 (Dulcolax Supp) 10 mg DAILY PRN RECTAL 12/09/17 01:15 (Lactulose Liq) 30 ml DAILY PRN PO 12/09/17 01:15 (Lipitor) 40 mg DAILY PO 12/09/17 09:00 12/10/17 09:15 (Ecotrin Ec) 325 mg DAILY PO 12/10/17 09:00 12/10/17 09:16 (Plavix) 75 mg DAILY PO 12/09/17 15:45 12/10/17 09:15 (Vasotec) 20 mg DAILY PO 12/10/17 09:00 12/10/17 09:15 (Microzide) 12.5 mg DAILY PO 12/10/17 09:00 (Lopressor) 75 mg BID PO 12/10/17 09:00 12/10/17 09:16 Allergies Allergies Coded Allergies No Known Allergies (Verified Allergy, Unknown, 12/09/17) Review of Systems Constitutional: Negative except HPI Eye: Negative Except HPI ENMT: Negative except HPI Respiratory: Negative except HPI Cardiovascular: Negative except HPI Gastrointestinal: Negative except HPI Blake/Lymph: Negative except HPI Musculoskeletal: Negative except HPI Neurologic: Negative except HPI Psychiatric: Negative except HPI All other ROS: ROS reviewed as documented in chart Exam I&O / VS Vital Signs Date Time Temp Pulse Resp B/P (MAP) Pulse Ox O2 Delivery O2 Flow Rate FiO2 12/10/17 07:05 98.4 63 18 144/78 (100) 95 12/10/17 04:48 97.7 54 18 160/80 (106) 96 12/10/17 04:35 56 12/10/17 00:53 98.0 62 18 132/61 (84) 98 12/10/17 00:10 51 12/09/17 20:10 70 12/09/17 19:22 97.8 67 18 167/75 (105) 97 12/09/17 16:51 67 12/09/17 15:02 98.2 69 16 138/74 (95) 96 12/09/17 11:05 98.0 58 16 139/68 (91) 97 General: Alert and Oriented, No acute distress Eye: PERRL, EOMI Respiratory: Non-labored respirations Cardiology: No murmur Neurologic: Alert, Oriented, Normal sensory, Normal motor, No focal defects, CN II-XII intact, Normal DTR's Psychiatric: Cooperative, Appropriate mood & affect Objective Micro and Labs Laboratory Tests Test 12/09/17 10:33 12/10/17 06:00 Urine Color YELLOW Urine Turbidity CLEAR Urine pH 6.0 Urine Specific [place] 1.032 Urine Protein NEG Urine Glucose (UA) NEG Urine Ketones NEG Urine Occult Blood NEG Urine Nitrite NEG Urine Bilirubin NEG Urine Urobilinogen 0.2 Urine Leukocyte Esterase NEG Urine RBC LESS THAN 1 Urine WBC LESS THAN 1 Urine Squamous Epithelial Cells <1 Urine Oval Fat Bodies CCNI Problem Qualifiers (1) TIA (transient ischemic attack): Qualified Codes: G45.8 - Other transient cerebral ischemic attacks and related syndromes Chavo Chen MD December 10, 2017 09:25
[2017-12-10 11:21] LABS: BICARBONATE 26.2 MEQ/L (21.0-32.0); CALCIUM 8.5 MG/DL (8.5-10.1); CREATININE 0.64 MG/DL (0.50-1.00)
[2017-12-10] MEDS ORDERED: METO-426 PO (12:29)
[2017-12-10] MEDS ORDERED: ASPI-183 PO (12:29)
--- NOTE | 2017-12-10 12:41 | HHI.DS ---
Discharge Summary Admission Date December 09, 2017 at 01:12 Discharge Date: December 10, 2017 Admitting Diagnosis TIA; poorly controlled htn (1) TIA (transient ischemic attack) ICD Code: G45.9 - Transient cerebral ischemic attack, unspecified Status: Acute (2) Poorly-controlled hypertension ICD Code: I10 - Essential (primary) hypertension Status: Chronic (3) Medical non-compliance ICD Code: Z91.19 - Patient's noncompliance with other medical treatment and regimen Status: Acute (4) HLD (hyperlipidemia) ICD Code: E78.5 - Hyperlipidemia, unspecified Status: Chronic (5) Tobacco dependence ICD Code: F17.200 - Nicotine dependence, unspecified, uncomplicated (6) Hypokalemia ICD Code: E87.6 - Hypokalemia Procedures None Brief History - From Admission 47-year-old female with a history of hypertension, hyperlipidemia, CVA, anxiety presents today with complaints of right upper extremity weakness and increased heaviness that began this morning. She states 2 months ago she recently moved to [place] and has been taking her medications except for her hydrochlorothiazide and aspirin, which she has been out. She has not been able to find a PCP for follow-up, but she has been taking her enalapril and metoprolol and atorvastatin as prescribed. She has not been taking her blood pressure at home. She states today after work her mom noted her to have increased slurred speech and insisted that she come to the hospital. She denies any associated chest pain, shortness of breath, fever or chills. CBC/BMP: 12/08/17 2136 12/10/17 1030 Significant Findings Laboratory Tests Test 12/08/17 21:36 12/08/17 22:33 12/09/17 03:27 12/09/17 10:33 Mean Corpuscular Volume 78.2 FL (80.0-100.0) Mean Corpuscular Hemoglobin 25.8 PG (27.0-34.0) Red Cell Distribution Width 18.5 % (11.6-17.2) Platelet Count 453 TH/MM3 (150-450) Prothrombin Time 9.7 SEC (9.8-11.6) Potassium Level 3.1 MEQ/L (3.5-5.1) 3.4 MEQ/L (3.5-5.1) Troponin I LESS THAN 0.02 NG/ML Chloride Level 108 MEQ/L (98-107) LDL Cholesterol 104 MG/DL (0-99) HDL Cholesterol 30.6 MG/DL (40.0-60.0) Test 12/10/17 10:30 Random Glucose 133 MG/DL (74-106) Chloride Level 108 MEQ/L (98-107) Imaging Last Impressions Brain MRI 12/09/17 0000 Signed Impressions: CONCLUSION: Neck CTA 12/08/172114 Signed Impressions: Service Date/Time: Friday, December 08, 2017 22:44 - CONCLUSION: Mild calcific plaque in both internal carotid arteries as well as mild noncalcified plaque the right internal carotid artery with less than 40%% diameter stenosis. Mason Villalpando MD Head CTA 12/08/172114 Signed Impressions: Service Date/Time: Friday, December 08, 2017 22:44 - CONCLUSION: Unremarkable exam. Mason Villalpando MD Head CT 12/08/172114 Signed Impressions: Service Date/Time: Friday, December 08, 2017 22:44 - CONCLUSION: Negative noncontrast head CT Mason Villalpando MD PE at Discharge GENERAL: This is a well-nourished, well-developed patient, in no apparent distress. Awake and alert. Sitting up in bed. SKIN: No rashes, ecchymoses or lesions. Warm and dry. HEENT: Atraumatic. Normocephalic. Pupils equal round and reactive. EOMI. No nasal drainage or discharge. Airway patent. MMM. CARDIOVASCULAR: Regular rate and rhythm without murmurs, gallops, or rubs. RESPIRATORY: Nonlabored. Clear to auscultation. Breath sounds equal bilaterally. No wheezes, rales, or rhonchi. GASTROINTESTINAL: Abdomen soft, non-tender, nondistended. No hepato-splenomegaly , or palpable masses. No guarding. MUSCULOSKELETAL: Extremities without clubbing, cyanosis, or edema. No joint tenderness, effusion, or edema noted. No calf tenderness. NEUROLOGICAL: Awake and alert. Able to move all extremities spontaneously. Motor function grossly intact in bilateral upper and lower extremities. No focal neurologic findings appreciated. Normal speech. No facial droop, no extremity drift, tongue is midline PSYCHIATRIC: Appropriate mood and affect. Normal judgment and insight. Calm and cooperative with exam. Pt update on day of discharge Follow up on patient with RUE weakness. Patient seen and examined. Patient denies any complaints this morning. She is refusing the MICHAEL. She has also refused am blood work secondary to be yelled at by poultry farm laborer. Lengthy discussion at the bedside regarding reasoning for extensive workup given her young age, multiple ischemic events and concern for hypercoagulability. Patient states understanding but is still insistent on refusing any additional workup at this time except for 2D echocardiogram which she is agreeable to completing. She understands she continues to be at risk for another ischemic event especially in light of incomplete workup and her continued tobacco use. She denies any dizziness, lightheadedness, headache, vision changes or slurred speech. She denies any chest pain or dyspnea. She denies any N/V or abdominal pain. She denies any weakness or numbness/tingling. She denies any urinary difficulties, diarrhea or constipation. Hospital Course Patient admitted with complaints of right upper extremity weakness and heaviness with concern for TIA. Head CT obtained was unremarkable. Neck CTA obtained revealing mild calcific plaque in both internal carotid arteries as well as mild noncalcified plaque in the right internal carotid artery with less than 40% diameter stenosis. MRI the brain was unremarkable. Patient's LDL was 104 and patient was started on Lipitor 40 mg daily. She was seen in consultation by neurology and started on Plavix 75 mg daily and aspirin 325 mg daily. Due to concern for possible hypercoagulable state given history of CVA in 2011, TIA in April and recurrent TIA this admission and young age of 47, hematology evaluated patient and began initial workup. Cardiology was also consulted for MICHAEL. However, patient refused MICHAEL study and additional laboratory studies as ordered by hematology. Had lengthy discussion with patient at the bedside in regards to importance of completion of her workup and concern that she may have underlying undiagnosed conditions that could potentially result in further ischemic events causing cognitive and functional disability and even . Patient stated complete understanding however she continued to refuse further testing at this time outside of a 2D echocardiogram. Patient was cleared for discharge from PT/ST/OT. Patient was also counseled multiple times in regard to the importance of smoking cessation. Patient's blood pressure was uncontrolled in the ED at 209/86 but improved significantly with medical management prior to discharge. 2D echocardiogram revealed left ventricular systolic function is normal with an estimated ejection fraction in the range of 60-65%. Normal left ventricular size. Wall thickness is normal. No regional wall motion abnormalities are present. Patient was cleared for discharge from a neurology standpoint with instructions to continue aspirin 325 mg daily and Lipitor daily. Patient was instructed to follow up with primary care physician, neurology and hematology as outpatient following discharge. Patient was advised to consider sleep study for possible GEORGIA as outpatient. Pt Condition on Discharge: Stable Discharge Disposition: Discharge Home Discharge Time: > 30 minutes Discharge Instructions DIET: Follow Instructions for: Heart Healthy Diet Activities you can perform: Regular-No Restrictions Follow up Referrals: Neurology - 1 Week with Chavo Chen MD Oncology/Hematology - 1 Week with Jamilah Schneider MD PCP Follow-up - 1 Week with Cathrynshannan Webb New Orders: BASIC METABOLIC PROF - 2-3 Days New Medications: Metoprolol Tartrate (Metoprolol Tartrate) 75 Mg Tab 75 MG PO BID for Blood Pressure Management, #60 TAB 0 Refills Changed Medications: Hydrochlorothiazide (Hydrochlorothiazide) 25 Mg Tab 12.5 MG PO DAILY for Blood Pressure Management, #15 TAB 0 Refills (Changed from : 25 MG; 30) Continued Medications: Amitriptyline (Amitriptyline) 100 Mg Tab 100 MG PO HS, TAB Aspirin (Aspirin) 325 Mg Tab 325 MG PO DAILY for Blood Clot Prevention, #30 TAB 0 Refills (This prescription has been renewed) Atorvastatin (Atorvastatin) 40 Mg Tab 40 MG PO HS for Cholesterol Management, #30 TAB 0 Refills (This prescription has been renewed) Enalapril (Enalapril) 20 Mg Tab 20 MG PO DAILY for Blood Pressure Management, #30 TAB 0 Refills (This prescription has been renewed) Sumi Enrique December 10, 2017 12:41
--- NOTE | 2017-12-10 15:18 | PD.CARD.PN ---
Subjective Subjective Remarks alert in nad Objective Medications Current Medications Medications (Trade) Dose Ordered Sig/Viktor Route Start Time Stop Time Status Last Admin (NS Flush) 2 ml UNSCH PRN IV FLUSH 12/09/17 01:15 (NS Flush) 2 ml BID IV FLUSH 12/09/17 09:00 12/10/17 09:16 (Tylenol) 650 mg Q4H PRN PO 12/09/17 01:15 (Zofran Odt) 4 mg Q6H PRN PO 12/09/17 01:30 (Narcan Inj) 0.4 mg UNSCH PRN IV PUSH 12/09/17 01:15 (Milk Of Magnesia Liq) 30 ml Q12H PRN PO 12/09/17 01:15 (Senokot) 17.2 mg Q12H PRN PO 12/09/17 01:15 (Dulcolax Supp) 10 mg DAILY PRN RECTAL 12/09/17 01:15 (Lactulose Liq) 30 ml DAILY PRN PO 12/09/17 01:15 (Lipitor) 40 mg DAILY PO 12/09/17 09:00 12/10/17 09:15 (Ecotrin Ec) 325 mg DAILY PO 12/10/17 09:00 12/10/17 09:16 (Vasotec) 20 mg DAILY PO 12/10/17 09:00 12/10/17 09:15 (Microzide) 12.5 mg DAILY PO 12/10/17 09:00 (Lopressor) 75 mg BID PO 12/10/17 09:00 12/10/17 09:16 Vital Signs / I&O Vital Signs Date Time Temp Pulse Resp B/P (MAP) Pulse Ox O2 Delivery O2 Flow Rate FiO2 12/10/17 11:10 98.3 64 18 145/82 (103) 95 12/10/17 10:29 68 12/10/17 07:05 98.4 63 18 144/78 (100) 95 12/10/17 04:48 97.7 54 18 160/80 (106) 96 12/10/17 04:35 56 12/10/17 00:53 98.0 62 18 132/61 (84) 98 12/10/17 00:10 51 12/09/17 20:10 70 12/09/17 19:22 97.8 67 18 167/75 (105) 97 12/09/17 16:51 67 I/O 12/09/17 12/09/17 12/09/17 12/10/17 12/10/17 12/10/17 07:00 15:00 23:00 07:00 15:00 23:00 Intake Total 1000 ml Balance 1000 ml Intake IV Total 1000 ml # Bowel Movements 1 Physical Exam GENERAL: SKIN: Warm and dry. HEAD: Normocephalic. EYES: No scleral icterus. No injection or drainage. NECK: Supple, trachea midline. No JVD or lymphadenopathy. CARDIOVASCULAR: Regular rate and rhythm without murmurs, gallops, or rubs. RESPIRATORY: Breath sounds equal bilaterally. No accessory muscle use. GASTROINTESTINAL: Abdomen soft, non-tender, nondistended. MUSCULOSKELETAL: No cyanosis, or edema. BACK: Nontender without obvious deformity. No CVA tenderness. Laboratory Laboratory Tests Test 12/10/17 10:30 Blood Urea Nitrogen 8 MG/DL Creatinine 0.64 MG/DL Random Glucose 133 MG/DL Calcium Level 8.5 MG/DL Sodium Level 143 MEQ/L Potassium Level 3.7 MEQ/L Chloride Level 108 MEQ/L Carbon Dioxide Level 26.2 MEQ/L Anion Gap 9 MEQ/L Estimat Glomerular Filtration Rate 99 ML/MIN Assessment and Plan Problem List: (1) TIA (transient ischemic attack) ICD Codes: G45.9 - Transient cerebral ischemic attack, unspecified Status: Acute (2) Medical non-compliance ICD Codes: Z91.19 - Patient's noncompliance with other medical treatment and regimen Status: Acute (3) Tobacco dependence ICD Codes: F17.200 - Nicotine dependence, unspecified, uncomplicated Assessment and Plan 1.) TIA - assymptomatic, she refuses MICHAEL, strongly advised her to stop smoking Problem Qualifiers (1) TIA (transient ischemic attack): Qualified Codes: G45.8 - Other transient cerebral ischemic attacks and related syndromes Severiano Melendez MD December 10, 2017 15:18
--- NOTE | 2017-12-10 15:32 | ECHRPT ---
Indication: CVA/TIA CONCLUSIONS The left ventricular systolic function is normal with an estimated ejection fraction in the range of 60-65%. Normal left ventricular size. Wall thickness is normal. No regional wall motion abnormalities are present. Normal left ventricular size. Wall thickness is normal. No regional wall motion abnormalities are present. There is trace tricuspid valve regurgitation. Normal estimated pulmonary pressures. BP: 145 / 82 HR: 64 Rhythm: Sinus MEASUREMENTS (Male / Female) Normal Values Technical Quality:Good 2D ECHO LV Diastolic Diameter PLAX 4.7 cm 4.2 - 5.9 / 3.9 - 5.3 cm LV Systolic Diameter PLAX 3.1 cm IVS Diastolic Thickness 1.0 cm 0.6 - 1.0 / 0.6 - 0.9 cm LVPW Diastolic Thickness 1.0 cm 0.6 - 1.0 / 0.6 - 0.9 cm LV Relative Wall Thickness 0.4 RV Internal Dim ED PLAX 2.8 cm LVOT Diameter 2.0 cm LA Systolic Diameter LX 4.0 cm 3.0 - 4.0 / 2.7 - 3.8 cm LV Ejection Fraction MOD 4C 60.7 % LV Cardiac Index MOD 4C 1965.5 cm/minm LV Ejection Fraction 4C AL 61.1 % LV Cardiac Index 4C AL 2027.4 cm/minm M-MODE Aortic Root Diameter MM 2.3 cm LA Systolic Diameter MM 4.0 cm LA Ao Ratio MM 1.7 AV Cusp Separation MM 1.6 cm DOPPLER AV Peak Velocity 162.0 cm/s AV Peak Gradient 10.5 mmHg LVOT Peak Velocity 123.0 cm/s LVOT Peak Gradient 6.1 mmHg AV Area Cont Eq pk 2.4 cm MV Area PHT 4.1 cm Mitral E Point Velocity 90.3 cm/s Mitral A Point Velocity 66.1 cm/s Mitral E to A Ratio 1.4 LV E' Lateral Velocity 12.3 cm/s Mitral E to LV E' Lateral Ratio 7.3 LV E' Septal Velocity 9.0 cm/s Mitral E to LV E' Septal Ratio 10.1 TR Peak Velocity 244.0 cm/s TR Peak Gradient 23.8 mmHg Right Atrial Pressure 10.0 mmHg Pulmonary Artery Systolic Pressu 33.8 mmHg Right Ventricular Systolic Press 33.8 mmHg PV Peak Velocity 95.0 cm/s PV Peak Gradient 3.6 mmHg FINDINGS LEFT VENTRICLE The left ventricular systolic function is normal with an estimated ejection fraction in the range of 60-65%. Normal left ventricular size. Wall thickness is normal. No regional wall motion abnormalities are present. RIGHT VENTRICLE Normal right ventricular size and systolic function. LEFT ATRIUM The left atrial size is normal. RIGHT ATRIUM The right atrial size is normal. ATRIAL SEPTUM Normal atrial septal thickness without atrial level shunting by limited color doppler interrogation. AORTA The aortic root and proximal ascending aorta are normal in size on limited imaging. MITRAL VALVE Structurally normal mitral valve. No mitral valve stenosis or regurgitation. AORTIC VALVE Trileaflet aortic valve. No aortic valve stenosis or regurgitation. TRICUSPID VALVE Structurally normal tricuspid valve. There is trace tricuspid valve regurgitation. Normal estimated pulmonary pressures. PULMONARY VALVE No pulmonary valve regurgitation or stenosis. VESSELS The inferior vena cava is normal in size. PERICARDIUM No pericardial effusion. Gasper Zhang MD, FACC (Electronically Signed) Final Date:10 Dec 2017 15:31
[2017-12-13 03:50] LABS: ANTI-THROMBIN III ACT 99 (80-120)
[2017-12-13 13:54] LABS: PHOS SERINE AB IGA LESS THAN 20 U/mL (<20)
[2017-12-13 17:50] LABS: BETA2 GLYCOPROTEIN I AB IGA LESS THAN 9.0 SAU (< OR = 20); BETA2 GLYCOPROTEIN I AB IGG LESS THAN 9.0 SGU (< OR = 20); BETA2 GLYCOPROTEIN I AB IGM LESS THAN 9.0 SMU (< OR = 20)
[2017-12-14 03:50] LABS: DRVVT 1:1 MIX ND (CORRECTED); DRVVT CONFIRM ND (NEGATIVE); HEXAGONAL PHASE CONFIRM ND (NEGATIVE)
[2017-12-16 23:51] LABS: CARDIOLIPIN AB IGA LESS THAN 11.0 APL (0-11)
[2017-12-17 19:05] LABS: PROTEIN C ACTIVITY 114 % (70 - 150); PROTEIN S ACTIVITY 80 % (50 - 160)
== END 2017-12-10 16:55 | disposition home or self-care (01) ==
LOC: NEPC 19:10 → NEDA 12-09 01:12 → NEPFCDU 12-09 01:44
PROVIDERS: ADMIT Internal Medicine; ATTEND Internal Medicine
DX: G45.9 Transient cerebral ischemic attack, unspecified (principal); I10 Essential (primary) hypertension; E87.6 Hypokalemia; E78.2 Mixed hyperlipidemia; F17.210 Nicotine dependence, cigarettes, uncomplicated; F41.9 Anxiety disorder, unspecified; R94.31 Abnormal electrocardiogram [ECG] [EKG]; Z79.02 Long term (current) use of antithrombotics/antiplatelets; Z79.82 Long term (current) use of aspirin; Z91.19 Patient's noncompliance with other medical treatment and regimen; Z82.3 Family history of stroke; Z82.49 Family history of ischemic heart disease and other diseases of the circulatory system
CPT/HCPCS: 70450; 70496; 70498; 70551; 80048; 80061; 80307; 81001; 81240; 81241; 82550; 82607; 83036; 84443; 84484; 85025; 85300; 85303; 85306; 85610; 85613; 85730; 86146; 86147; 86148; 92522; 93005; 93306; 96360; 96361; 97162; 97167; 99285; G0378; G8987; G8988; G8989; G8999; G9186; J7030; Q9967